=== PATIENT | male | born 1965 | race Caucasian/White ===

== ENCOUNTER 2019-01-24 12:53 | Emergency (ER) | payer SELFPAY ==
[2019-01-24] MEDS ORDERED: EPINEPHrine 1 MG/10 ML Abboject SYRINGE ONE (13:03)
[2019-01-24] MEDS ORDERED: EPINEPHrine 1 mg/ml MDV (1ml Charge) ONE (13:03)
[2019-01-24 13:15] LABS: #Basophils 0.2 thou/uL (0.0-0.2); #Eosinphils 0.5 thou/uL (0.0-0.7); #Lymphocytes 2.7 thou/uL (1.20-3.40); #Monocytes 0.4 thou/uL (0.11-0.59); #Neutrophils 7.8 thou/uL (1.40-6.50); %Basophils 1.5 % (0.0-1.0); %Lymphocytes 23.2 % (21.0-51.0); %Monocytes 3.2 % (0.0-10.0); %Neutrophils 68.2 % (42.0-75.0); Hemoglobin 13.5 g/dL (14.0-18.0); Mean Corpuscular HGB CONC 30.8 g/dL (32.0-36.0); Mean Corpuscular Volume 81.2 fL (78.0-98.0); Mean Platelet Volume 8.5 fL (7.4-10.4); Platelet Count 169 thou/uL (130-400); RBC Distribution Width 17.2 % (11.5-14.5); Red Blood Cell (RBC) Count 5.39 mill/uL (4.70-6.10); White Blood Cell (WBC) Count 11.5 thou/uL (4.8-10.8)
[2019-01-24] MEDS ORDERED: Famotidine In NaCl 20 mg/50 ml Premix Bag ONE (13:18)
[2019-01-24] MEDS ORDERED: Albuterol Sulfate 1.25 MG/3 ML NEB ONE ×2 (13:18→14:21)
[2019-01-24] MEDS ORDERED: methylPREDNISolone Sod Succ/PF 125 MG/2 ML VIAL ONE (13:18)
[2019-01-24] MEDS ORDERED: diphenhydrAMINE 50 MG/ML VIAL ONE (13:18)
[2019-01-24 13:32] LABS: ALT (SGPT) 21 U/L (8-55); AST (SGOT) 20 U/L (5-34); Albumin 4.3 g/dL (3.5-5.0); Alkaline Phosphatase 128 U/L (40-150); Anion Gap 14 mmol/L (10-20); BUN (Urea Nitrogen) 9 mg/dL (8.4-25.7); Bilirubin, Total 0.3 mg/dL (0.2-1.2); Calc. Creatinine Clearance 0 mL/min (70-130); Calcium 9.3 mg/dL (7.8-10.44); Carbon Dioxide 26 mmol/L (22-29); Chloride 104 mmol/L (98-107); Estimated GFR-MDRD Greater than 90; Glucose 97 mg/dL (70-105); Potassium 4.2 mmol/L (3.5-5.1); Protein, Total 7.3 g/dL (6.0-8.3); Sodium 140 mmol/L (136-145)
--- NOTE | 2019-01-24 21:11 | RAD ---
PORTABLE CHEST: 01/24/19 An AP portable film at 1312 was compared with a 06/22/15 study. Old healed rib fractures are seen on the right namely involving the fourth through seventh ribs. The lungs are clear. The heart is normal in size. There is no infiltrate or effusion. A calcified left hi lar node is noted. IMPRESSION: No acute thoracic finding. POS: HOME
== END 2019-01-24 14:55 | disposition home or self-care (01) ==
LOC: BURERS 12:53
DX: J98.01 Acute bronchospasm (principal); L23.7 Allergic contact dermatitis due to plants, except food; F17.210 Nicotine dependence, cigarettes, uncomplicated
CPT/HCPCS: 71045; 80053; 84484; 85025; 94760; 96372; 96374; 96375; J0171; J1200; J2930

== ENCOUNTER 2019-03-01 14:55 | Emergency (ER) | payer MEDICAID ==
[2019-03-01] MEDS ORDERED: methylPREDNISolone Sod Succ/PF 125 MG/2 ML VIAL ONE (15:23)
== END 2019-03-01 15:33 | disposition home or self-care (01) ==
LOC: BURERS 14:55
DX: L25.5 Unspecified contact dermatitis due to plants, except food (principal); F17.290 Nicotine dependence, other tobacco product, uncomplicated; Z85.828 Personal history of other malignant neoplasm of skin
CPT/HCPCS: 96372; 99282; J2930

== ENCOUNTER 2021-05-09 14:53 | Emergency (ER) | payer OTHER | END 2021-05-09 15:19 | disposition home or self-care (01) | LOC: BURERS 14:53 | DX: S39.011A Strain of muscle, fascia and tendon of abdomen, initial encounter (principal); M25.572 Pain in left ankle and joints of left foot; F17.290 Nicotine dependence, other tobacco product, uncomplicated; X50.9XXA Other and unspecified overexertion or strenuous movements or postures, initial encounter | CPT/HCPCS: 99283 ==

== ENCOUNTER 2021-05-11 20:08 | Emergency (ER) | payer OTHER ==
[2021-05-11] MEDS ORDERED: Tetracaine 0.5% PF 4 ML BOT ONE (20:35)
[2021-05-11] MEDS ORDERED: Fluorescein Opthalmic Strip ONE (20:35)
[2021-05-11] MEDS ORDERED: Cyclopentolate 1% Opth Drop 2 ML BOT ONE (20:45)
[2021-05-11] MEDS ORDERED: traMADol HCl 50 MG TAB ONE (21:10)
== END 2021-05-11 21:15 | disposition home or self-care (01) ==
LOC: BURERS 20:08
DX: S05.11XA Contusion of eyeball and orbital tissues, right eye, initial encounter (principal); H20.00 Unspecified acute and subacute iridocyclitis; Z85.828 Personal history of other malignant neoplasm of skin; F17.290 Nicotine dependence, other tobacco product, uncomplicated; W22.8XXA Striking against or struck by other objects, initial encounter
CPT/HCPCS: 99283

== ENCOUNTER → 2025-04-11 | Emergency (ER) | payer OTHER ==
[~2025-04-11] MED LIST: Boostrix 0.5 ML (Tdap) VIAL (>/=7 yrs of age) ONE; Cephalexin 250 MG CAP ONE; Lidocaine 1% (PF) 30 ML VIAL ONE; Silver Nitrate Application 1 EACH ONE
== END ==
LOC: BURERS 20:49
DX: S62.521A Displaced fracture of distal phalanx of right thumb, initial encounter for closed fracture (principal); S61.011A Laceration without foreign body of right thumb without damage to nail, initial encounter; F17.290 Nicotine dependence, other tobacco product, uncomplicated; Z23 Encounter for immunization; X58.XXXA Exposure to other specified factors, initial encounter
CPT/HCPCS: 90471; 90715